=== PATIENT | male | born 1985 | race Caucasian/White ===

== ENCOUNTER 2018-12-02 23:21 | Emergency (ER) | payer OTHER ==
[2018-12-03] MEDS ORDERED: KETOROLAC TROMETHAMINE 60 MG/2 ML VIAL ONE (00:04)
[2018-12-03] MEDS ORDERED: LIDOCAINE 5% TOPICAL PATCH TP ONE (00:04)
[2018-12-03] MEDS ORDERED: MORPHINE SULFATE 2 MG/ML 1ML SYG ONE (00:05)
[2018-12-03] MEDS ORDERED: DIAZEPAM 2 MG TAB ONE (00:08)
[2018-12-03] MEDS ORDERED: METHYLPREDNISOLONE SOD SUCC 125MG/2ML VIAL ONE (01:02)
[2018-12-03] MEDS ORDERED: MORPHINE SULFATE 4 MG/1ML SYG ONE (01:03)
== END 2018-12-03 02:00 | disposition home or self-care (01) ==
LOC: EDH 23:21
DX: M62.830 Muscle spasm of back (principal); M54.5 Low back pain
CPT/HCPCS: 96372 ×3; 99283; J1885; J2270; J2930